=== PATIENT | female | born 1930 | race Caucasian/White ===

== ENCOUNTER 2016-11-10 02:50 | Inpatient (IN) | payer BC, OTHER ==
[~2016-11-10] VITALS: Ht 157.5 cm; Wt 36.1 kg
[2016-11-10] VITALS (51 sets, daily range): BP systolic 66–118; BP diastolic 46–78; PULSE 79–151; TEMP 36.4–36.6; O2SAT 88–100; Ht 157.5 cm; Wt 36.1 kg
[~2016-11-10 02:50] MED LIST: OXYC-57 PO
[2016-11-10] MEDS ORDERED: SODIUM CHLORIDE 0.9% 1000ML 1,000 ML IV STA (03:06)
[2016-11-10] MEDS ORDERED: PANTOprazole INJ 80 MG in DEXTROSE 5% 100ML IV STA (03:14)
[2016-11-10] MEDS ORDERED: PANTOprazole INJ 40 MG in DEXTROSE 5% 100ML IV STA (03:15)
[2016-11-10 03:38] LABS: ISTAT CREATININE 0.7 mg/dl (0.6-1.3); ISTAT HEMOGLOBIN 12.6 g/dl (12.0-16.0); ISTAT IONIZED CALCIUM 1.53 mmol/l (1.12-1.32)
[2016-11-10 03:43] LABS: URINE APPEARANCE CLEAR (CLEAR); URINE COLOR DK YELLOW; URINE EPITHELIAL CELL AUTO >30 /lpf (0-5); URINE NITRITE NEG (NEG); URINE SPECIFIC GRAVITY 1.022 (1.000-1.030); UROBILINOGEN NEG (NEG); ZZURINE CULT IF INDIC CATH NO
[2016-11-10 03:47] LABS: INR 1.2 (0.9-1.1); PROTHROMBIN TIME (PATIENT) 13.4 SECONDS (9.0-12.0)
[2016-11-10 03:54] LABS: BUN/CREATININE RATIO 59.4 (10-20); CALCIUM 10.8 mg/dl (8.5-10.1); CREATININE 0.8 mg/dl (0.60-1.20); MAGNESIUM 2.6 mg/dl (1.8-2.4); POTASSIUM 3.9 mmol/L (3.5-5.1)
[2016-11-10 03:58] LABS: MANUAL MICROSCOPIC REQUIRED? NO; REVIEW REQ? YES; URINE BILIRUBIN NEG (NEG)
[2016-11-10 03:59] LABS: CKMB/CK RATIO 2.9 (0-3.0)
[2016-11-10 04:10] LABS: BASO ABS # 0.01 K/uL (0-0.2); COMPLETE YES; HEMATOCRIT 40.2 % (37-47); IG% 0.5 %; LYMPH % 3.5 %; LYMPH ABS # 1.08 K/uL (1.2-3.4); MEAN CORPUSCULAR HEMOGLOBIN 33.3 pg (25-34); MEAN CORPUSCULAR HGB CONC 33.6 g/dl (32-36); MEAN PLATELET VOLUME 11.5 fL (7.4-10.4); MONO % 2.4 %; NEUT % 93.6 %; PLATELET COUNT 191 K/uL (130-400); RED BLOOD COUNT 4.06 M/uL (4.2-5.4)
[2016-11-10] MEDS ORDERED: MoRPHine SULFATE 2 MG/ML CARP ONE (04:28)
[2016-11-10] MEDS ORDERED: PIPERACILLIN/TAZOBACTAM 3.375 GM/100ML D5W IV STA (04:30)
[2016-11-10] MEDS ORDERED: ALBUT/IPRATROP 3MG/0.5MG NEB 3 ML VIAL INH PRN (04:45)
[2016-11-10] MEDS ORDERED: LORAZEPAM 2 MG/ML 1 ML VIAL IV PRN (04:45)
--- NOTE | 2016-11-10 05:20 | History and Physical ---
History & Physical Date & Time of Service: Nov 10, 2016 at 04:43 Chief Complaint: Illness/Dehydrated Primary Care Physician: Michael Farah M.D. History of Present Illness Source: patient, spouse 85 y/o F w/Hx bronchiectasis and oral CA receiving radiation therapy. Pt has very poor PO intake and functional status at baseline. She developed bloody diarrhea earlier 11/10 and suffered a brief unresponsive episode following a BM. EMS were called to her house however she refused transport to the hospital. She became progressively lethargic and and continued to have bouts of bloody diarrhea. EMS was once again summoned by her resulting in transport to the hospital. Following fluid resuscitation in the ER she regained her orientation. She has chronic oral pain but denies abdominal pain, nausea or vomiting preceding her hematochezia. She has a chronic cough owing to her bronchiectasis but denies SOB above baseline or fevers. She is borderline hypotensive and tachycardic at the time of admission. Initial labs are notable for leukocytosis, hypernatremia, uremia and an elevated lactic acid. EKG shows either sinus tach or flutter at a rate of 150. 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 Noncontributory Social History Smoking Status: Never Smoker Alcohol Use: none Drug Use: none Marital Status: Housing status: lives with friends Immunizations History of Influenza Vaccine: Unknown History of Tetanus Vaccine?: Unknown History of Pneumococcal: Unknown History of Hepatitis B Vaccine: Unknown Multi-Drug Resistant Organisms History of MDRO: No Allergies Coded Allergies: Tetanus Toxoid (Verified Allergy, Severe, SWELLING, RED, INFLAMMED, 11/10/16 ) Codeine (Verified Allergy, Intermediate, VOMITING, 11/10/16) NSAIDs (Verified Allergy, Intermediate, FACIAL SWELLING, STOMACH PROBLEMS , 11/10/16) Home Medications Scheduled PRN Oxycodone/Acetaminophen 5MG/325MG (Percocet 5MG/325MG), 1 TABLET PO Q6H PRN for Pain Review of Systems Constitutional: + fatigue, + weakness, + weight loss, No chills, No fever, No sweats Eyes: No worsening of vision ENT: + problem reported (Chronic oral pain), + trouble swallowing, No hearing loss, No unusual epistaxis Respiratory: + cough, + sputum Cardiovascular: No PND, No chest pain, No orthopnea Abdomen: + diarrhea, + problem reported (Hmeatochezia), No nausea, No pain, No vomiting Musculoskeletal: + joint pain (Chronic) Genitourinary - Female: No dysuria, No urinary frequency, No urinary urgency Neurologic: + weakness, No memory loss, No paralysis Psychiatric: No depression symptoms Endocrine: + fatigue Hematologic / Lymphatic: + abnormal bleeding/bruising Integumentary: No rash Allergic / Immunologic: No environmental allergies Physical Exam Vital Signs Date Time Temp Pulse Resp B/P Pulse Ox O2 Delivery O2 Flow Rate FiO2 11/10/16 04:15 152 94/82 11/10/16 04:03 153 102/73 96 Nasal Cannula 4.0 11/10/16 03:41 Nasal Cannula 4.0 11/10/16 03:38 153 135/91 11/10/16 03:36 170 11/10/16 03:35 154 11/10/16 03:29 104 11/10/16 03:25 159 30 11/10/16 03:20 151 31 11/10/16 03:17 36.1 152 31 98/63 90 Nasal Cannula 11/10/16 03:17 159 11/10/16 03:15 105 28 11/10/16 03:10 118 32 11/10/16 03:10 123 11/10/16 03:00 98/63 General Appearance: + pertinent finding (Sverely wasted elderly female, pale and slow to answer questions - globally weak - oriented x 3 ) Head: normocephalic, atraumatic ENT: + pertinent finding (Inflamed palate - could not open mouth widely) Neck: supple, no JVD Respiratory/Chest: chest non-tender, lungs clear, no respiratory distress, no accessory muscle use Cardiovascular: + tachycardia (e=Regular tachycardia - may have slight systolic murmur) Abdomen/GI: non tender, + pertinent finding (Firm abdomen - nontender to palpation - aortic pulse is palpable BS+ - hematochezia witnessed) Back: normal inspection Extremities/Musculoskelatal: + pertinent finding (Severe muscle wasting) Neurologic/Psych: tobacco packer II-XII nml as tested, alert, + pertinent finding ( Globally weak without focal defecits) Skin: warm/dry (Severe pallor) Diagnostics Laboratory Results Results Past 24 Hours Test 11/10/16 02:59 11/10/16 03:17 11/10/16 03:21 11/10/16 03:30 Range/Units Bedside Lactic Acid Venous 5.94 0.90-1.70 mmol/L White Blood Count 30.70 4.8-10.8 K/uL Red Blood Count 4.06 4.2-5.4 M/uL Hemoglobin 13.5 12.0-16.0 g/dL Hematocrit 40.2 37-47 % Mean Corpuscular Volume 99.0 80-100 fL Mean Corpuscular Hemoglobin 33.3 25-34 pg Mean Corpuscular Hemoglobin Concent 33.6 32-36 g/dl Platelet Count 191 130-400 K/uL Mean Platelet Volume 11.5 7.4-10.4 fL Neutrophils (%) (Auto) 93.6 % Lymphocytes (%) (Auto) 3.5 % Monocytes (%) (Auto) 2.4 % Eosinophils (%) (Auto) 0.0 % Basophils (%) (Auto) 0.0 % Neutrophils # (Auto) 28.72 1.4-6.5 K/uL Lymphocytes # (Auto) 1.08 1.2-3.4 K/uL Monocytes # (Auto) 0.73 0.11-0.59 K/uL Eosinophils # (Auto) 0.00 0-0.5 K/uL Basophils # (Auto) 0.01 0-0.2 K/uL RDW Standard Deviation 51.5 36.4-46.3 fL RDW Coefficient of Variation 14.4 11.5-14.5 % Immature Granulocyte % (Auto) 0.5 % Immature Granulocyte # (Auto) 0.16 0.00-0.02 K/uL Prothrombin Time 13.4 9.0-12.0 SECONDS Prothromb Time International Ratio 1.2 0.9-1.1 Sodium Level 153 136-145 mmol/L Potassium Level 3.9 3.5-5.1 mmol/L Chloride Level 115 98-107 mmol/L Carbon Dioxide Level 25 21-32 mmol/L Anion Gap 13.0 23.0 16-25 mmol/L Blood Urea Nitrogen 48 7-18 mg/dl Creatinine 0.80 0.60-1.20 mg/dl Est Creatinine Clear Calc Drug Dose 27.7 ml/min Estimated GFR () 77.4 Estimated GFR (Non- 66.8 BUN/Creatinine Ratio 59.4 10-20 Random Glucose 124 70-99 mg/dl Calcium Level 10.8 8.5-10.1 mg/dl Magnesium Level 2.6 1.8-2.4 mg/dl Total Bilirubin 0.8 0.2-1 mg/dl Direct Bilirubin 0.4 0-0.2 mg/dl Aspartate Amino Transf (AST/SGOT) 15 15-37 U/L Alanine Aminotransferase (ALT/SGPT) 15 12-78 U/L Alkaline Phosphatase 117 45-117 U/L Total Creatine Kinase 48 26-192 U/L Creatine Kinase MB 1.4 0.5-3.6 ng/ml Creatine Kinase MB Ratio 2.9 0-3.0 Troponin I 0.041 0-0.045 ng/ml Total Protein 7.2 6.4-8.2 gm/dl Albumin 2.2 3.4-5.0 gm/dl Bedside Hemoglobin 12.6 12.0-16.0 g/dl Bedside Hematocrit 37 37-47 % Bedside Sodium 151 135-144 mEq/L Bedside Potassium 3.7 3.3-5.0 mEq/L Bedside Chloride 111 101-112 mEq/L Bedside Total CO2 22 24-31 mEq/l Bedside Blood Urea Nitrogen 46 7-18 mg/dl Bedside Creatinine 0.7 0.6-1.3 mg/dl Bedside Glucose (other) 127 70-99 mg/dl Bedside Ionized Calcium (Wili) 1.53 1.12-1.32 mmol/l Urine Color DK YELLOW Urine Appearance CLEAR CLEAR Urine pH 5.0 4.5-7.5 Urine Specific [place] 1.022 1.000-1.030 Urine Protein NEG NEG Urine Glucose (UA) NEG NEG Urine Ketones NEG NEG Urine Occult Blood NEG NEG Urine Nitrite NEG NEG Urine Bilirubin NEG NEG Urine Urobilinogen NEG NEG Urine Leukocyte Esterase NEG NEG Urine WBC (Auto) 1-5 0-5 /hpf Urine RBC (Auto) 0-4 0-4 /hpf Urine Hyaline Casts (Auto) 10-30 0-5 /lpf Urine Epithelial Cells (Auto) >30 0-5 /lpf Urine Bacteria (Auto) NEG NEG Urine Renal Epithelial Cells 0-5 /lpf Microbiology Results 11/10/16 Blood Culture, Received Pending 11/10/16 Blood Culture, Received Pending Diagnostic Radiology CXR appears consistent with COPD - multiple nodular densities may represent underlying bronchiectasis EKG Difficult to discern if EKG represents flutter or sinus tach Impression Assessment and Plan 85 y/o F w/Hx bronchiectasis and oral CA receiving radiation therapy. Pt has very poor PO intake and functional status at baseline. She developed bloody diarrhea earlier 11/10 and suffered a brief unresponsive episode following a BM. EMS were called to her house however she refused transport to the hospital. She became progressively lethargic and and continued to have bouts of bloody diarrhea. EMS was once again summoned by her resulting in transport to the hospital. Following fluid resuscitation in the ER she regained her orientation. She is borderline hypotensive and tachycardic at the time of admission. Initial labs are notable for leukocytosis, hypernatremia, uremia and an elevated lactic acid. EKG shows either sinus tach or flutter at a rate of 150. 1) GI bleed - possibly upper - pt is borderline hypotensive and tachycardic - will be admitted to the ICU and transfused - Protonix GTT ordered. GI consulted. Aggressive fluid resuscitation provided pending transfusions. Hb will be checked Q4H. 2) Tachycardia - sinus vs flutter - She may be compensating and has become gradually hypotensive so that we will avoid rate control drugs at present. We will order an echo and digoxin would be an option if this is deemed to be flutter as opposed to sinus tach. 3) Leukocytosis with history of bronchiectasis - we will start Zosyn considering her condition and lactic acidosis although acute infection cannot be confirmed presently. Nebulizers and an 02 protocol provided 4) Hypernatremia - likely severe dehydration - IVF provided. 5) Severe protein malnutrition - may need TPN while in hospital - should be addressed as possible if pt recovers 6) Oral CA - Pain control with IV morphine PRN Pt may not be a candidate for any intervention owing to her constitutional status and I have explained this to her and her at bedside. As her condition is critical we will request a palliative care consult. She remains a full code although I have explained that CPR can result in morbidity and intubation may be difficult and detrimental with underlying oral CA. Full code - SCDs for prophylaxis Tital time for this admit including discussion with ER attending, extensive discussion with pt and , review of imaging , labs , meds - including critical care time 45 min Level of Care Critical Care Resuscitation Status FULL RESUSCITATION VTE Prophylaxis VTE Risk Assessment Done? Y/N: Yes Risk Level: High Given or contraindicated: SCD's Note Total Time: Critical Care 30 - 74 minutes
[2016-11-10] MEDS ORDERED: SODIUM CHLORIDE 0.9% 500ML 500 ML IV PRN (05:30)
[2016-11-10] MEDS ORDERED: NSS + 20MEQ KCL 1000ML 1,000 ML IV SCH (06:00)
[2016-11-10] MEDS ORDERED: PIPERACILL/TAZOBAC CONSULT ACTIVE PRN (06:15)
--- NOTE | 2016-11-10 06:38 | EMERGENCY ROOM VISIT NOTE ---
History Report prepared by Bubba: Durga Tsai Under the Supervision of: Dr. Roland Jeffries M.D. First contact with patient: 03:01 Chief Complaint: ILLNESS Stated Complaint: ILLNESS/DEHYDRATED History of Present Illness The patient is an 85 year old female who presents to the Emergency Room with complaints of persistent bloody diarrhea today. The patient denies abdominal pain. As per nursing staff, the paramedics were called twice before the patient agreed to come to the ED. She receives chemotherapy for oral cancer. History limited secondary to patient not talking. As per EMS, the patient has known oral cancer. It is unknown what antibiotics she is on. She had a bloody bowel movement earlier today. EMS was called, and she refused to come to the hospital upon their arrival. This evening she had an unresponsive episode. Her called 911. When EMS arrived, she was awake and somewhat responsive. She is a full code. Source of History: patient, EMS, nursing staff History Limited By: other (non verbal) Onset: all day Position: other (GI) Quality: other (bloody diarrhea) Timing: other (persistent) Associated Symptoms: No abdominal pain Review of Systems ROS limited secondary to patient not talking. Past Medical & Surgical Medical Problems: (1) GI hemorrhage (2) Head and neck cancer Family History Patient reports no known family medical history. Social History Smoking Status: Never Smoker Marital Status: Housing Status: lives with family Current/Historical Medications Scheduled PRN Oxycodone/Acetaminophen 5MG/325MG (Percocet 5MG/325MG), 1 TABLET PO Q6H PRN for Pain Allergies Coded Allergies: Tetanus Toxoid (Verified Allergy, Severe, SWELLING, RED, INFLAMMED, 11/10/16 ) Codeine (Verified Allergy, Intermediate, VOMITING, 11/10/16) NSAIDs (Verified Allergy, Intermediate, FACIAL SWELLING, STOMACH PROBLEMS , 11/10/16) Physical Exam Vital Signs Date Time Temp Pulse Resp B/P Pulse Ox O2 Delivery O2 Flow Rate FiO2 11/10/16 04:31 145 104/71 11/10/16 04:15 152 94/82 11/10/16 04:03 153 102/73 96 Nasal Cannula 4.0 11/10/16 03:41 Nasal Cannula 4.0 11/10/16 03:38 153 135/91 11/10/16 03:36 170 11/10/16 03:35 154 11/10/16 03:29 104 11/10/16 03:25 159 30 11/10/16 03:20 151 31 11/10/16 03:17 36.1 152 31 98/63 90 Nasal Cannula 11/10/16 03:17 159 11/10/16 03:15 105 28 11/10/16 03:10 118 32 11/10/16 03:10 123 11/10/16 03:00 98/63 Physical Exam GENERAL: Patient is very unwell appearing and appears to be in severe distress. Emaciated/cachectic. Severely malnourished. HEENT: No acute trauma, normocephalic atraumatic, mucous membranes dry, lips are cracked with blood on teeth, no nasal congestion, no scleral icterus. NECK: No stridor, no adenopathy, no meningismus, trachea is midline. LUNGS: No dyspnea. Clear to auscultation and equal bilaterally. No wheeze, no rhonchi. Mildly tachypneic. HEART: Tachycardic, regular rhythm. No murmurs, rubs, gallops appreciated. ABDOMEN: Emaciated/cachectic with easily palpable liver, kidneys, aorta, bowel. Soft, nontender. No peritonitis. BACK: No midline tenderness, no CVA tenderness EXTREMITIES: Weak motion all extremities, no cyanosis, no edema. NEUROLOGIC: Sleepy, answers simple questions with yes or no, difficult to obtain full neuro given altered mental status on arrival. SKIN: No rash, no jaundice, no diaphoresis. Poor turgor. RECTAL: Black / bloody stool. Medical Decision & Procedures ER Provider Diagnostic Interpretation: X ray results are stated below per my interpretation. CHEST ONE VIEW: Right pleural effusion. Diffuse lung disease vs infiltrate vs cancer vs CHF. When compared to previous CXR from several years ago, lungs have significantly deteriorated. Laboratory Results 11/10/16 03:17 Red Blood Count 4.06, Mean Corpuscular Volume 99.0, Mean Corpuscular Hemoglobin 33.3, Mean Corpuscular Hemoglobin Concent 33.6, Mean Platelet Volume 11.5, Neutrophils (%) (Auto) 93.6, Lymphocytes (%) (Auto) 3.5, Monocytes (%) (Auto) 2.4, Eosinophils (%) (Auto) 0.0, Basophils (%) (Auto) 0.0, Neutrophils # (Auto) 28.72, Lymphocytes # (Auto) 1.08, Monocytes # (Auto) 0.73, Eosinophils # (Auto) 0.00, Basophils # (Auto) 0.01 11/10/16 03:17 Test 11/10/16 02:59 11/10/16 03:17 11/10/16 03:21 11/10/16 03:30 Bedside Lactic Acid Venous 5.94 mmol/L (0.90-1.70) White Blood Count 30.70 K/uL (4.8-10.8) Red Blood Count 4.06 M/uL (4.2-5.4) Hemoglobin 13.5 g/dL (12.0-16.0) Hematocrit 40.2 % (37-47) Mean Corpuscular Volume 99.0 fL (80-100) Mean Corpuscular Hemoglobin 33.3 pg (25-34) Mean Corpuscular Hemoglobin Concent 33.6 g/dl (32-36) Platelet Count 191 K/uL (130-400) Mean Platelet Volume 11.5 fL (7.4-10.4) Neutrophils (%) (Auto) 93.6 % Lymphocytes (%) (Auto) 3.5 % Monocytes (%) (Auto) 2.4 % Eosinophils (%) (Auto) 0.0 % Basophils (%) (Auto) 0.0 % Neutrophils # (Auto) 28.72 K/uL (1.4-6.5) Lymphocytes # (Auto) 1.08 K/uL (1.2-3.4) Monocytes # (Auto) 0.73 K/uL (0.11-0.59) Eosinophils # (Auto) 0.00 K/uL (0-0.5) Basophils # (Auto) 0.01 K/uL (0-0.2) RDW Standard Deviation 51.5 fL (36.4-46.3) RDW Coefficient of Variation 14.4 % (11.5-14.5) Immature Granulocyte % (Auto) 0.5 % Immature Granulocyte # (Auto) 0.16 K/uL (0.00-0.02) Prothrombin Time 13.4 SECONDS (9.0-12.0) Prothromb Time International Ratio 1.2 (0.9-1.1) Est Creatinine Clear Calc Drug Dose 27.7 ml/min Estimated GFR () 77.4 Estimated GFR (Non- 66.8 BUN/Creatinine Ratio 59.4 (10-20) Calcium Level 10.8 mg/dl (8.5-10.1) Magnesium Level 2.6 mg/dl (1.8-2.4) Total Bilirubin 0.8 mg/dl (0.2-1) Direct Bilirubin 0.4 mg/dl (0-0.2) Aspartate Amino Transf (AST/SGOT) 15 U/L (15-37) Alanine Aminotransferase (ALT/SGPT) 15 U/L (12-78) Alkaline Phosphatase 117 U/L (45-117) Total Creatine Kinase 48 U/L (26-192) Creatine Kinase MB 1.4 ng/ml (0.5-3.6) Creatine Kinase MB Ratio 2.9 (0-3.0) Troponin I 0.041 ng/ml (0-0.045) Total Protein 7.2 gm/dl (6.4-8.2) Albumin 2.2 gm/dl (3.4-5.0) Bedside Hemoglobin 12.6 g/dl (12.0-16.0) Bedside Hematocrit 37 % (37-47) Bedside Sodium 151 mEq/L (135-144) Bedside Potassium 3.7 mEq/L (3.3-5.0) Bedside Chloride 111 mEq/L (101-112) Bedside Total CO2 22 mEq/l (24-31) Anion Gap 23.0 mmol/L (16-25) Bedside Blood Urea Nitrogen 46 mg/dl (7-18) Bedside Creatinine 0.7 mg/dl (0.6-1.3) Bedside Glucose (other) 127 mg/dl (70-99) Bedside Ionized Calcium (Wili) 1.53 mmol/l (1.12-1.32) Urine Color DK YELLOW Urine Appearance CLEAR (CLEAR) Urine pH 5.0 (4.5-7.5) Urine Specific [place] 1.022 (1.000-1.030) Urine Protein NEG (NEG) Urine Glucose (UA) NEG (NEG) Urine Ketones NEG (NEG) Urine Occult Blood NEG (NEG) Urine Nitrite NEG (NEG) Urine Bilirubin NEG (NEG) Urine Urobilinogen NEG (NEG) Urine Leukocyte Esterase NEG (NEG) Urine WBC (Auto) 1-5 /hpf (0-5) Urine RBC (Auto) 0-4 /hpf (0-4) Urine Hyaline Casts (Auto) 10-30 /lpf (0-5) Urine Epithelial Cells (Auto) >30 /lpf (0-5) Urine Bacteria (Auto) NEG (NEG) Urine Renal Epithelial Cells /lpf (0-5) Laboratory results as reviewed by me. Medications Administered Medications (Trade) Dose Ordered Sig/Alfonzo Route Start Time Stop Time Status Last Admin Dose Admin Sodium Chloride (Nss 1000ml) 1,000 ml @ 999 mls/hr Q1H1M STAT IV 11/10/16 03:06 11/10/16 04:06 DC 11/10/16 03:35 999 MLS/HR Pantoprazole Sodium 1 ea 1 ea NOW STAT IV 11/10/16 03:06 11/10/16 03:08 DC 11/10/16 03:06 1 EA Pantoprazole Sodium 80 mg/ Dextrose 120 ml @ 480 mls/hr ONE STAT IV 11/10/16 03:14 11/10/16 03:28 DC 11/10/16 03:36 480 MLS/HR Pantoprazole Sodium/Dextrose (Protonix Inj/D5 100ml) 100 ml @ 20 mls/hr ONE STAT IV 11/10/16 03:15 11/10/16 05:56 DC 11/10/16 03:48 20 MLS/HR Morphine Sulfate (MoRPHine SULFATE INJ) 2 mg STK-MED ONCE .ROUTE 11/10/16 04:28 11/10/16 04:29 DC 11/10/16 04:28 2 MG Piperacillin Sod/ Tazobactam Sod (Zosyn Iv) 3.375 gm NOW STAT IV 11/10/16 04:30 11/10/16 04:31 DC 11/10/16 04:47 3.375 GM ECG Indication: weakness Rate (beats per minute): 112 Rhythm: sinus tachycardia Findings: PAC, no acute ischemic change ED Course 0300: The patient was evaluated in room A3. A complete history and physical exam was performed. 0306: Protonix IV Bolus/Drip 1 ea IV, NSS 1000 ml @ mls/hr. 0308: Obtained more information from EMS. 0314: Pantoprazole Sodium 80 mg / dextrose 120 ml @ 480 mls/hr. 0315: Pantoprazole Sodium 40 mg / dextrose 100 ml @ 20 mls/hr. 0325: The patient is now profusely bleeding from her rectum. 0320: Gastroenterology was paged. 0335: Checked on the patient. I updated her . I recommended that their sons be contacted. 0335: Discussed the case with Dr. Hernandez, [employer]. He agrees that the patient would be unsuitable for emergent endoscopy. Attempts at reversing with PRBCs and Protonix may be the only option. 0350: Dr. Conley, [facility] Hospitalist, was paged. 0401: Discussed the case with Dr. Conley. The patient will be evaluated. 0408: The patient is starting to wake up. 0410: The patient's heart rate is at 150. She appears to be in a flutter. A repeat EKG will be obtained. 0430: Zosyn 3.375 gm IV. Medical Decision Differential: Sepsis, Infectious (UTI/Pneumonia/Meningitis/etc), Metabolic/ Electrolyte Abnormality, Cardiac, Hepatic, Endocrine, Toxicologic, Neurologic, amongst other pathologies entertained. 85 yr old severely unwell and malnourished female with known oral tumor that has had several rounds of palliative radiation. Previously ruled out Chemo or surgery due to she is too unwell for this. Arrives with tachycardia, hypotension, and heavy rectal bleeding. Large stool ball in rectal vault that blood in coursing around. No abdominal pain, nor TTP. Clearly palpable aorta but I feel this is more likely her severe emaciation than AAA. Immediately obtained 2 IVs, fluid resus begun and 2 Units PRBC ordered for transfusion. She initially was quite altered though with resus she started becoming more with it and answering questions. Initially tachy 110s then jumped to steady 150. Repeat EKG looks almost like Aflutter and she remained very stable 150 throughout. She is not candidate for cardizem/lopressor and would be quite hesitant on trial of adenosine, nor starting dig without echo. She is maintaining her BP. WBC is quite elevated which I suspect is mostly stress related but with lactic acidosis and other issues will start Zosyn, especially that bleed may be related to diverticulitis. I discussed at length multiple time with and and both feel they would like full ACLS in case of cardio/respiratory failure. I did discuss case with Dr Howard GI and we both agree she would be far to unstable to go to OR/Endo and that protonix/PRBC is only option at this time. Dr Conley in to evaluate patient as well and we discussed case at length. Both of us feel she is not in any way a surgical candidate at the moment as she needs further resus. He will take her to ICU for further management/treatment. Consults Time Called: [phone] Consulting Physician: Dr. Hernandez, [employer] Returned Call: [phone]: Discussed the case with Dr. Hernandez, [employer]. He agrees that the patient would be unsuitable for emergent endoscopy. Attempts at reversing with PRBCs and Protonix may be the only option. Additional Consults: Time Called: [phone] Consulted Physician: Dr. Conley, [facility] Hospitalist Returned Call: [phone] Additional Comments: 400: Discussed the case with Dr. Conley. The patient will be evaluated. Impression Primary Impression: Acute GI bleeding Additional Impressions: Lactic acidosis, Leukocytosis Critical Care I have personally spent greater than 75 minutes of critical care time in the direct management of this patient. This was a life/limb threatening event. This includes time spent evaluating patient, direct bedside care, chart review, placing orders, interpretation of diagnostic studies, discussion with consultants, patient, and family members, as well as other required patient management activities. This 75 minutes is in excess of all separately billable procedures. Scribe Attestation The scribe's documentation has been prepared under my direction and personally reviewed by me in its entirety. I confirm that the note above accurately reflects all work, treatment, procedures, and medical decision making performed by me. Departure Information Dispostion Being Evaluated By Hospitalist Michael Clark M.D. (PCP) Patient Instructions A Signature Page, My [facility]
[2016-11-10] MEDS: SODIUM CHLOR 0.45% + 20MEQ KCL 1,000 ML IV SCH ×3 (07:15→21:44)
--- NOTE | 2016-11-10 07:22 | DIAGNOSTIC IMAGING REPORT ---
CHEST ONE VIEW PORTABLE HISTORY: fever COMPARISON: PET CT 08/10/2016. FINDINGS: No pneumothorax. Partially loculated [id number] right pleural effusion is new from the prior study. The heart is normal in size. The lungs are hyperexpanded. Right greater than left patchy airspace opacities have also progressed. IMPRESSION: 1. Interval development of a small to moderate partially loculated right pleural effusion. 2. Right greater than left patchy and nodular airspace opacities has also progressed. This may represent an atypical infectious process and/or metastatic disease. Electronically signed by: Gibson Rodrigues M.D. 11/10/2016 7:20 AM
--- NOTE | 2016-11-10 09:22 | Palliative Care Consultation ---
Consultation Date of Consultation: Nov 10, 2016. Requesting Physician: Dr. Cabello, Crys Queen PA-C Attending Physician: Dr. Cabello Reason for Consultation: Goals of care History of Present Illness This 85 year old female patient with a history of oral cancer and completed radiation therapy on 11/02/16 presented with c/o bloody diarrhea and syncope following a bowel movement. EMS was contacted and she refused transportation the hospital. She became progressively lethargic with subsequent bouts of bloody diarrhea and was brought to the emergency room. She was fluid resuscitated with good response and more altertness. She was hypotensive and tachycardic on admission and was transferred to the intensive care unit evaluation and treatment. EKG showed tachycardia at 150 bpm concerning for atrial flutter. With fluid hydration she converted spontaneously into a normal sinus rhythm. This patient is severely cachectic, profoundly malnourished and weak, and has had an overall decline. While her VS are stable at this time, her frailty and comorbidities given her a poor prognosis. Palliative care consulted to assist with goals of care. I met with the patient and her in the room. The patient was awake and alert, oriented to person, place and somewhat event. She is slightly disoriented , but still was able to appropriately participate in conversation. She denied any pain or discomfort. I spoke with her and her extensively about goals of care. It is very important to the patient to be comfortable and not suffer. The agrees. the patient and her , Ivan, chose to change patient's code status to DNR/DNI. They'd like to continue with conservative and supportive measures for the next 24 hours and monitor for improvement vs. decline. If the patient declines, she'd like to be comfort measures only. Past Medical/Surgical History Medical History: Bronchiectasis Oral cancer s/p radiation completed 12/03/15 Cachexia Osteoarthritis Social History Smoking Status: Never Smoker History of Alcohol Use: No Drug Use: none Marital Status: Housing Status: lives with friends Review of Systems Constitutional: + weakness Respiratory: No dyspnea on exertion, No shortness of breath Cardiac: No chest pain, No edema Abdomen: + diarrhea, No nausea, No pain, No vomiting Female : No problem reported Allergies Coded Allergies: Tetanus Toxoid (Verified Allergy, Severe, SWELLING, RED, INFLAMMED, 11/10/16 ) Codeine (Verified Allergy, Intermediate, VOMITING, 11/10/16) NSAIDs (Verified Allergy, Intermediate, FACIAL SWELLING, STOMACH PROBLEMS , 11/10/16) Medications Current Inpatient Medications Medications (Trade) Dose Ordered Sig/Alfonzo Route Start Time Stop Time Status Last Admin Dose Admin Piperacillin Sod/ Tazobactam Sod/ Dextrose (Zosyn Iv/D5 100ml) 115 ml @ 28.75 mls/ hr Q8H IV 11/10/16 10:00 11/17/16 09:59 Lorazepam (Ativan Inj) 0.5 mg Q4H PRN IV 11/10/16 04:45 12/10/16 04:44 Albuterol/ Ipratropium (Duoneb) 3 ml Q6H PRN INH 11/10/16 04:45 12/10/16 04:44 Morphine Sulfate 4 mg 4 mg Q2H PRN IV 11/10/16 04:45 11/24/16 04:44 Sodium Chloride (Nss 500ml) 500 ml @ 500 mls/hr Q1H PRN IV 11/10/16 05:30 12/10/16 05:29 Piperacillin Sod/ Tazobactam Sod 1 ea 1 ea UD PRN N/A 11/10/16 06:15 12/10/16 06:14 Potassium Chloride/Sodium Chloride (/ Nss + 20meq KCl 1000ml) 1,000 ml @ 150 mls/hr Q6H40M IV 11/10/16 07:15 12/10/16 06:44 Physical Exam Date Time Temp Pulse Resp B/P Pulse Ox O2 Delivery O2 Flow Rate FiO2 11/10/16 06:29 79 14 89/54 94 11/10/16 06:13 89 27 97/52 98 11/10/16 06:10 89 25 87/53 97 4.0 11/10/16 05:58 88 23 87/53 93 11/10/16 05:47 36.5 95 24 95/60 11/10/16 05:46 36.4 93 25 82/51 95 4.0 11/10/16 05:43 89 26 82/51 94 11/10/16 05:33 90 17 90/56 11/10/16 05:26 36.5 89 24 95/60 97 11/10/16 05:10 97 Nasal Cannula 4.0 11/10/16 04:45 90/68 11/10/16 04:31 145 104/71 11/10/16 04:15 152 94/82 11/10/16 04:03 153 102/73 96 Nasal Cannula 4.0 11/10/16 03:41 Nasal Cannula 4.0 11/10/16 03:38 153 135/91 11/10/16 03:36 170 11/10/16 03:35 154 11/10/16 03:29 104 11/10/16 03:25 159 30 11/10/16 03:20 151 31 11/10/16 03:17 36.1 152 31 98/63 90 Nasal Cannula 11/10/16 03:17 159 11/10/16 03:15 105 28 11/10/16 03:10 118 32 11/10/16 03:10 123 11/10/16 03:00 98/63 General Appearance: no apparent distress, + cachetic, + thin, + pertinent finding (chronically ill appearing) Neck: no JVD, trachea midline Respiratory: no respiratory distress, no accessory muscle use, + rhonchi ( coarse anteriorly) Cardiovascular: regular rate, rhythm, no edema Abdomen: normal bowel sounds, non tender, soft Musculoskeletal: pertinent finding (right arm with +1 edema) Neurologic/Psychiatric: alert, normal mood/affect, oriented x 3, + disoriented (some forgetfulness) Skin: + pallor Laboratory Results Last 24 Hours Test 11/10/16 02:59 11/10/16 03:17 11/10/16 03:21 11/10/16 03:30 Bedside Lactic Acid Venous 5.94 mmol/L White Blood Count 30.70 K/uL Red Blood Count 4.06 M/uL Hemoglobin 13.5 g/dL Hematocrit 40.2 % Mean Corpuscular Volume 99.0 fL Mean Corpuscular Hemoglobin 33.3 pg Mean Corpuscular Hemoglobin Concent 33.6 g/dl Platelet Count 191 K/uL Mean Platelet Volume 11.5 fL Neutrophils (%) (Auto) 93.6 % Lymphocytes (%) (Auto) 3.5 % Monocytes (%) (Auto) 2.4 % Eosinophils (%) (Auto) 0.0 % Basophils (%) (Auto) 0.0 % Neutrophils # (Auto) 28.72 K/uL Lymphocytes # (Auto) 1.08 K/uL Monocytes # (Auto) 0.73 K/uL Eosinophils # (Auto) 0.00 K/uL Basophils # (Auto) 0.01 K/uL RDW Standard Deviation 51.5 fL RDW Coefficient of Variation 14.4 % Immature Granulocyte % (Auto) 0.5 % Immature Granulocyte # (Auto) 0.16 K/uL Prothrombin Time 13.4 SECONDS Prothromb Time International Ratio 1.2 Sodium Level 153 mmol/L Potassium Level 3.9 mmol/L Chloride Level 115 mmol/L Carbon Dioxide Level 25 mmol/L Anion Gap 13.0 mmol/L 23.0 mmol/L Blood Urea Nitrogen 48 mg/dl Creatinine 0.80 mg/dl Est Creatinine Clear Calc Drug Dose 27.7 ml/min Estimated GFR () 77.4 Estimated GFR (Non- 66.8 BUN/Creatinine Ratio 59.4 Random Glucose 124 mg/dl Calcium Level 10.8 mg/dl Magnesium Level 2.6 mg/dl Total Bilirubin 0.8 mg/dl Direct Bilirubin 0.4 mg/dl Aspartate Amino Transf (AST/SGOT) 15 U/L Alanine Aminotransferase (ALT/SGPT) 15 U/L Alkaline Phosphatase 117 U/L Total Creatine Kinase 48 U/L Creatine Kinase MB 1.4 ng/ml Creatine Kinase MB Ratio 2.9 Troponin I 0.041 ng/ml Total Protein 7.2 gm/dl Albumin 2.2 gm/dl Bedside Hemoglobin 12.6 g/dl Bedside Hematocrit 37 % Bedside Sodium 151 mEq/L Bedside Potassium 3.7 mEq/L Bedside Chloride 111 mEq/L Bedside Total CO2 22 mEq/l Bedside Blood Urea Nitrogen 46 mg/dl Bedside Creatinine 0.7 mg/dl Bedside Glucose (other) 127 mg/dl Bedside Ionized Calcium (Wili) 1.53 mmol/l Urine Color DK YELLOW Urine Appearance CLEAR Urine pH 5.0 Urine Specific [place] 1.022 Urine Protein NEG Urine Glucose (UA) NEG Urine Ketones NEG Urine Occult Blood NEG Urine Nitrite NEG Urine Bilirubin NEG Urine Urobilinogen NEG Urine Leukocyte Esterase NEG Urine WBC (Auto) 1-5 /hpf Urine RBC (Auto) 0-4 /hpf Urine Hyaline Casts (Auto) 10-30 /lpf Urine Epithelial Cells (Auto) >30 /lpf Urine Bacteria (Auto) NEG Urine Renal Epithelial Cells /lpf Test 11/10/16 08:00 Assessment & Plan Palliative Performance Scale: 20 % Problem list: GI bleed Oral cancer s/p radiation completed on 11/02/16 Cachexia Pleural effusion Malnutrition/Poor PO intake Bronchiectasis Weakness Goals of care Palliative care plan: DNR/DNI per patient and her who is at bedside. Continue with supportive care such as protonix drip, IVF and anything comfort-related. The patient's goal is to be comfortable for the remainder of her life and to not have invasive procedures or aggressive treatment. I did advise the , Ivan, to call any and all family/friends who wish to see the patient, as we unfortunately are approaching end-of-life care. The patient and Ivan verbalized understanding. The plan for now is to continue conservative and supportive measures for the next 24 hours, then reevaluate. If patient declines, she wishes to be comfort measures only. Their ultimate goal would be to get patient to [facility] for comfort care. Thank you kindly for this consult.
[2016-11-10 09:55] LABS: HEMATOCRIT 40.5 % (37-47)
--- NOTE | 2016-11-10 10:11 | Gastrointestinal Consultation ---
Gastrointestinal Consultation Date of Consultation: Nov 10, 2016 Attending Physician: Dr. Conley Consulting Physician: Dr. Hernandez/SHIELA Moreno Reason for Consultation: GIB History of Present Illness Patient is a 85 year old female with a history of oral cancer admitted to the hospital early this morning after a one day history of bloody diarrhea and increasing weakness. Patient has a poor oral nutritional status. She denies any abdominal pain, nausea or vomiting, or diarrhea since admission. H&H was normal on admission and she remains hemodynamically stable. Patient did have a significant leukocytosis of 30.7 and abnormal chest x ray suggestive an infectious or malignant process right > left. She has been placed on IV Zosyn in this regard. She was seen by palliative care and decision has been made for comfort measures. Past Medical/Surgical History Medical Problems: (1) Acute GI bleeding Status: Acute (2) Lactic acidosis Status: Acute (3) Leukocytosis Status: Acute Past Medical History: 1. Oral cancer 2. Cachexia 3. Bronchiectasis 4. OA 5. GERD 6. Lichen planus Past Surgical History: 1. Oral palate biopsy 2. Cholecystectomy 3. Tonsillectomy 4. Hemorrhoidectomy Family History Patient reports no known family medical history. Negative for GI malignancy Social History Smoking Status: Never Smoker Alcohol Use: none Drug Use: none Marital Status: Housing Status: lives with family Allergies Coded Allergies: Tetanus Toxoid (Verified Allergy, Severe, SWELLING, RED, INFLAMMED, 11/10/16 ) Codeine (Verified Allergy, Intermediate, VOMITING, 11/10/16) NSAIDs (Verified Allergy, Intermediate, FACIAL SWELLING, STOMACH PROBLEMS , 11/10/16) Current Medications Home Meds and Scripts Medications Dose Route/Sig Max Daily Dose Days Date Category Dose Instructions Percocet 5MG/325MG (Oxycodone/Acetaminophen) Tab 1 Tablet PO Q6H PRN 10/19/16 Reported PAIN Review of Systems Constitutional: + fatigue, + weakness Eyes: No problem reported ENT: No problem reported Respiratory: + dyspnea on exertion, + shortness of breath Cardiac: No chest pain Abdomen: + see HPI Musculoskeletal: No problem reported Psych: No problem reported Skin: No problem reported Physical Exam Date Time Temp Pulse Resp B/P Pulse Ox O2 Delivery O2 Flow Rate FiO2 11/10/16 06:29 79 14 89/54 94 11/10/16 06:13 89 27 97/52 98 11/10/16 06:10 89 25 87/53 97 4.0 11/10/16 05:58 88 23 87/53 93 11/10/16 05:47 36.5 95 24 95/60 11/10/16 05:46 36.4 93 25 82/51 95 4.0 11/10/16 05:43 89 26 82/51 94 11/10/16 05:33 90 17 90/56 11/10/16 05:26 36.5 89 24 95/60 97 11/10/16 05:10 97 Nasal Cannula 4.0 11/10/16 04:45 90/68 11/10/16 04:31 145 104/71 11/10/16 04:15 152 94/82 11/10/16 04:03 153 102/73 96 Nasal Cannula 4.0 11/10/16 03:41 Nasal Cannula 4.0 11/10/16 03:38 153 135/91 11/10/16 03:36 170 11/10/16 03:35 154 11/10/16 03:29 104 11/10/16 03:25 159 30 11/10/16 03:20 151 31 11/10/16 03:17 36.1 152 31 98/63 90 Nasal Cannula 11/10/16 03:17 159 11/10/16 03:15 105 28 11/10/16 03:10 118 32 11/10/16 03:10 123 11/10/16 03:00 98/63 General Appearance: + cachetic Eyes: EOMI Respiratory/Chest: lungs clear, + decreased breath sounds (bases) Cardiovascular: regular rate, rhythm, no gallop, no murmur Abdomen: normal bowel sounds, non tender, soft Neurologic/Psych: normal mood/affect, + pertinent finding (drowsy) Skin: warm/dry Laboratory Results Last 24 Hours Test 11/10/16 02:59 11/10/16 03:17 11/10/16 03:21 11/10/16 03:30 Bedside Lactic Acid Venous 5.94 mmol/L White Blood Count 30.70 K/uL Red Blood Count 4.06 M/uL Hemoglobin 13.5 g/dL Hematocrit 40.2 % Mean Corpuscular Volume 99.0 fL Mean Corpuscular Hemoglobin 33.3 pg Mean Corpuscular Hemoglobin Concent 33.6 g/dl Platelet Count 191 K/uL Mean Platelet Volume 11.5 fL Neutrophils (%) (Auto) 93.6 % Lymphocytes (%) (Auto) 3.5 % Monocytes (%) (Auto) 2.4 % Eosinophils (%) (Auto) 0.0 % Basophils (%) (Auto) 0.0 % Neutrophils # (Auto) 28.72 K/uL Lymphocytes # (Auto) 1.08 K/uL Monocytes # (Auto) 0.73 K/uL Eosinophils # (Auto) 0.00 K/uL Basophils # (Auto) 0.01 K/uL RDW Standard Deviation 51.5 fL RDW Coefficient of Variation 14.4 % Immature Granulocyte % (Auto) 0.5 % Immature Granulocyte # (Auto) 0.16 K/uL Prothrombin Time 13.4 SECONDS Prothromb Time International Ratio 1.2 Sodium Level 153 mmol/L Potassium Level 3.9 mmol/L Chloride Level 115 mmol/L Carbon Dioxide Level 25 mmol/L Anion Gap 13.0 mmol/L 23.0 mmol/L Blood Urea Nitrogen 48 mg/dl Creatinine 0.80 mg/dl Est Creatinine Clear Calc Drug Dose 27.7 ml/min Estimated GFR () 77.4 Estimated GFR (Non- 66.8 BUN/Creatinine Ratio 59.4 Random Glucose 124 mg/dl Calcium Level 10.8 mg/dl Magnesium Level 2.6 mg/dl Total Bilirubin 0.8 mg/dl Direct Bilirubin 0.4 mg/dl Aspartate Amino Transf (AST/SGOT) 15 U/L Alanine Aminotransferase (ALT/SGPT) 15 U/L Alkaline Phosphatase 117 U/L Total Creatine Kinase 48 U/L Creatine Kinase MB 1.4 ng/ml Creatine Kinase MB Ratio 2.9 Troponin I 0.041 ng/ml Total Protein 7.2 gm/dl Albumin 2.2 gm/dl Bedside Hemoglobin 12.6 g/dl Bedside Hematocrit 37 % Bedside Sodium 151 mEq/L Bedside Potassium 3.7 mEq/L Bedside Chloride 111 mEq/L Bedside Total CO2 22 mEq/l Bedside Blood Urea Nitrogen 46 mg/dl Bedside Creatinine 0.7 mg/dl Bedside Glucose (other) 127 mg/dl Bedside Ionized Calcium (Wili) 1.53 mmol/l Urine Color DK YELLOW Urine Appearance CLEAR Urine pH 5.0 Urine Specific [place] 1.022 Urine Protein NEG Urine Glucose (UA) NEG Urine Ketones NEG Urine Occult Blood NEG Urine Nitrite NEG Urine Bilirubin NEG Urine Urobilinogen NEG Urine Leukocyte Esterase NEG Urine WBC (Auto) 1-5 /hpf Urine RBC (Auto) 0-4 /hpf Urine Hyaline Casts (Auto) 10-30 /lpf Urine Epithelial Cells (Auto) >30 /lpf Urine Bacteria (Auto) NEG Urine Renal Epithelial Cells /lpf Test 11/10/16 09:45 Hemoglobin 13.3 g/dL Hematocrit 40.5 % Impression Patient is a 85 year old female with a history of oral cancer admitted with lethargy and weakness with bloody diarrhea prior to arrival. Plan 1. Decision has been made for palliative care and comfort measures. 2. Would therefore defer any and all additional GI work up at this time. Agree with Selma Fletcher, as above Patient placed on comfort measures
[2016-11-10] MEDS: PIPERACILL/TAZOBAC IV 3.375 GM in DEXTROSE 5% 100ML 100 ML IV SCH ×2 (10:54→21:56)
[2016-11-10] MEDS: MoRPHine SULFATE 4 MG/ML 1 ML CARP\\VIAL IV PRN ×2 (12:58→17:28)
[2016-11-10 15:12] LABS: HEMATOCRIT 40.1 % (37-47)
--- NOTE | 2016-11-10 15:55 | ECHOCARDIOGRAM REPORT ---
*NOTICE TO RECEIVING LIBERTARIAN AGENCY This information is strictly Confidential and protected under [place] law. [place] law prohibits you from making any further disclosure of this information unless further disclosure is expressly permitted by the written consent of the person to whom it pertains or is authorized by law. A general authorization for the release of medical or other information is not sufficient for this purpose. Hospital accepts no responsibility if the information is made available to any other person, INCLUDING THE PATIENT. Interpretation Summary * Name: ANGE PATEL Study Date: 11/10/2016 06:39 AM BP: 89/54 mmHg * Patient Location: [facility] HR: 79 * : 1930 (M/d/yyyy) Gender: Female Height: 60 in * Age: 85 yrs Ethnicity: [place] Weight: 76 lb * Ordering Physician: Kristofer Conley * Referring Physician: TERESA * Performed By: Erendira Ruggiero RDCS * * Reason For Study: FLUTTER * BSA: 1.2 m2 * History: FLUTTER * -- Conclusions -- * The left ventricle is grossly normal size. * Left ventricular systolic function is low normal. * Ejection Fraction = 50-55%. * Flattened septum is consistent with RV volume overload. * There is mild concentric left ventricular hypertrophy. * Hemodynamically significant valvular aortic stenosis cannot be excluded. * Aortic valve right coronary cusp movement severely restricted, other cusps not well visualized. Indeterminate degree of aortic stenosis suggested, clinical correlation necessary. * Grade I diastolic dysfunction, (abnormal relaxation pattern). * There is moderate tricuspid regurgitation. * Right ventricular systolic pressure is normal. * The right ventricle is mildly dilated. Procedure Details * A complete two-dimensional transthoracic echocardiogram was performed (2D, M-mode, Doppler and color flow Doppler). Left Ventricle * The left ventricle is grossly normal size. * There is mild concentric left ventricular hypertrophy. * Ejection Fraction = 50-55%. * Left ventricular systolic function is low normal. * Flattened septum is consistent with RV volume overload. Right Ventricle * The right ventricle is mildly dilated. Atria * The left atrium is mildly dilated. * The right atrium is mildly dilated. * The interatrial septum is intact with no evidence for an atrial septal defect. Mitral Valve * The mitral valve is normal in structure and function. * There is trace mitral regurgitation. Tricuspid Valve * The tricuspid valve is normal in structure and function. * There is moderate tricuspid regurgitation. * Right ventricular systolic pressure is normal. Aortic Valve * The aortic valve is not well visualized. * Aortic valve right coronary cusp movement severely restricted, other cusps not well visualized. Indeterminate degree of aortic stenosis suggested, clinical correlation necessary. * Hemodynamically significant valvular aortic stenosis cannot be excluded. * There is no significant aortic regurgitation. Pulmonic Valve * The pulmonary valve is inadequately visualized, but the Doppler data is adequate for interpretation. * There is no significant pulmonary regurgitation. Great Vessels * The aortic root is normal size. * No obvious dissection could be visualized. * The pulmonary artery is not well visualized, but is probably normal size. Pericardium/Pleural * There is no pericardial effusion. Great Vessels * The inferior vena cava is mildly dilated. Left Ventricular Diastolic Function * Grade I diastolic dysfunction, (abnormal relaxation pattern). MMode 2D Measurements and Calculations IVSd 0.75 cm IVSs 1.2 cm LVIDd 2.7 cm LVIDs 2.0 cm LVPWd 1.1 cm LVPWs 1.3 cm IVS/LVPW 0.71 FS 26.2 % EDV(Teich) 27.3 ml ESV(Teich) 12.7 ml EF(Teich) 53.3 % EDV(cubed) 19.9 ml ESV(cubed) 8.0 ml EF(cubed) 59.8 % % IVS thick 55.7 % % LVPW thick 23.4 % LV mass(C)d 61.1 grams LV mass(C)dI 49.4 grams/m\S\2 LV mass(C)s 68.8 grams LV mass(C)sI 55.6 grams/m\S\2 SV(Teich) 14.5 ml SI(Teich) 11.8 ml/m\S\2 SV(cubed) 11.9 ml SI(cubed) 9.6 ml/m\S\2 Ao root diam 2.3 cm Ao root area 4.3 cm\S\2 LA dimension 2.0 cm LA/Ao 0.84 LVAd ap4 9.6 cm\S\2 LVLd ap4 4.9 cm EDV(MOD-sp4) 15.8 ml EDV(sp4-el) 15.9 ml LVAs ap4 6.7 cm\S\2 LVLs ap4 4.6 cm ESV(MOD-sp4) 8.7 ml ESV(sp4-el) 8.3 ml EF(MOD-sp4) 45.0 % EF(sp4-el) 47.6 % LVAd ap2 11.0 cm\S\2 LVLd ap2 5.2 cm EDV(MOD-sp2) 19.0 ml EDV(sp2-el) 19.7 ml LVAs ap2 7.1 cm\S\2 LVLs ap2 4.5 cm ESV(MOD-sp2) 9.5 ml ESV(sp2-el) 9.4 ml EF(MOD-sp2) 50.0 % EF(sp2-el) 52.3 % LVLd %diff 6.7 % EDV(MOD-bp) 18.1 ml LVLs %diff -2.06 % ESV(MOD-bp) 9.0 ml EF(MOD-bp) 50.0 % SV(MOD-sp4) 7.1 ml SI(MOD-sp4) 5.8 ml/m\S\2 SV(MOD-sp2) 9.5 ml SI(MOD-sp2) 7.7 ml/m\S\2 SV(MOD-bp) 9.0 ml SI(MOD-bp) 7.3 ml/m\S\2 SV(sp4-el) 7.6 ml SI(sp4-el) 6.1 ml/m\S\2 SV(sp2-el) 10.3 ml SI(sp2-el) 8.3 ml/m\S\2 Doppler Measurements and Calculations MV E max rosendo 59.7 cm/sec MV A max rosendo 99.4 cm/sec MV E/A 0.60 MV dec time 0.35 sec Ao V2 max 132.8 cm/sec Ao max PG 7.1 mmHg Ao max PG (full) 4.9 mmHg LV V1 max PG 2.1 mmHg LV V1 max 73.2 cm/sec TR max rosendo 231.2 cm/sec
--- NOTE | 2016-11-10 16:11 | Progress Note ---
Subjective Subjective Date of Service: Nov 10, 2016. Pt evaluation today including: conversation w/ patient, physical exam, chart review, review of studies, conversation w/ learning and development consultant (Balwinderpert), review of inpatient medication list Notes: ROS is limited due to patient current condition Problem List Medical Problems: (1) Acute GI bleeding Status: Acute (2) Lactic acidosis Status: Acute (3) Leukocytosis Status: Acute Review of Systems ENT: No hearing loss Cardiac: No chest pain Female : No dysuria Endo: No fatigue Physical Exam Vital Signs Vital Signs Past 24 Hours: Date Time Temp Pulse Resp B/P Pulse Ox O2 Delivery O2 Flow Rate FiO2 11/10/16 14:00 105 11/10/16 14:00 102 22 107/62 Room Air 11/10/16 13:00 36.6 151 24 98/78 95 11/10/16 12:58 151 24 98/78 11/10/16 12:43 150 95/64 11/10/16 12:29 114 21 93/53 11/10/16 12:14 150 16 92/77 11/10/16 12:00 109 19 99/54 11/10/16 12:00 Room Air 11/10/16 11:43 101 22 101/64 11/10/16 11:29 106 17 110/71 11/10/16 11:13 98 17 118/74 95 11/10/16 11:00 104 16 104/64 90 Room Air 11/10/16 11:00 91 17 96 11/10/16 10:58 91 14 109/53 91 11/10/16 10:43 100 18 93/60 11/10/16 10:28 89 20 99/57 92 11/10/16 10:14 92 101/52 100 11/10/16 10:00 94 14 104/57 100 Nasal Cannula 2.0 11/10/16 10:00 89 29 100 11/10/16 09:58 89 22 104/57 100 11/10/16 09:43 94 12 104/61 100 11/10/16 09:29 94 15 95/55 11/10/16 09:13 96 12 102/55 92 11/10/16 09:00 144 17 91 11/10/16 08:58 93 16 98/60 92 11/10/16 08:43 95 17 95/52 93 11/10/16 08:28 88 92/59 91 11/10/16 08:13 89 86/56 93 11/10/16 08:00 92 Nasal Cannula 2.0 11/10/16 08:00 90 13 90 11/10/16 08:00 36.6 94 14 100/62 92 Nasal Cannula 2.0 11/10/16 07:58 93 17 100/62 92 11/10/16 07:43 89 12 92/57 94 11/10/16 07:29 88 26 89/62 93 11/10/16 07:13 90 16 96/56 94 11/10/16 07:00 86 21 94 11/10/16 06:29 79 14 89/54 94 11/10/16 06:13 89 27 97/52 98 11/10/16 06:10 89 25 87/53 97 4.0 11/10/16 05:58 88 23 87/53 93 11/10/16 05:47 36.5 95 24 95/60 11/10/16 05:46 36.4 93 25 82/51 95 4.0 11/10/16 05:43 89 26 82/51 94 11/10/16 05:33 90 17 90/56 11/10/16 05:26 36.5 89 24 95/60 97 11/10/16 05:10 97 Nasal Cannula 4.0 11/10/16 04:45 90/68 11/10/16 04:31 145 104/71 11/10/16 04:15 152 94/82 11/10/16 04:03 153 102/73 96 Nasal Cannula 4.0 11/10/16 03:41 Nasal Cannula 4.0 11/10/16 03:38 153 135/91 11/10/16 03:36 170 11/10/16 03:35 154 11/10/16 03:29 104 11/10/16 03:25 159 30 11/10/16 03:20 151 31 11/10/16 03:17 36.1 152 31 98/63 90 Nasal Cannula 11/10/16 03:17 159 11/10/16 03:15 105 28 11/10/16 03:10 118 32 11/10/16 03:10 123 11/10/16 03:00 98/63 Physical Exam: General Appearance: WD/WN, no apparent distress Eyes: bilateral eyes normal inspection ENT: hearing grossly normal Neck: supple, no JVD Respiratory/Chest: chest non-tender Abdomen: normal bowel sounds Extremities: normal range of motion Skin: normal color Medications Medications: Current Inpatient Medications Medications (Trade) Dose Ordered Sig/Alfonzo Route Start Time Stop Time Status Last Admin Dose Admin Piperacillin Sod/ Tazobactam Sod/ Dextrose (Zosyn Iv/D5 100ml) 115 ml @ 28.75 mls/ hr Q8H IV 11/10/16 10:00 11/17/16 09:59 11/10/16 10:54 28.75 MLS/HR Lorazepam (Ativan Inj) 0.5 mg Q4H PRN IV 11/10/16 04:45 12/10/16 04:44 Albuterol/ Ipratropium (Duoneb) 3 ml Q6H PRN INH 11/10/16 04:45 12/10/16 04:44 Morphine Sulfate 4 mg 4 mg Q2H PRN IV 11/10/16 04:45 11/24/16 04:44 11/10/16 12:58 4 MG Sodium Chloride (Nss 500ml) 500 ml @ 500 mls/hr Q1H PRN IV 11/10/16 05:30 12/10/16 05:29 Piperacillin Sod/ Tazobactam Sod 1 ea 1 ea UD PRN N/A 11/10/16 06:15 12/10/16 06:14 Potassium Chloride/Sodium Chloride (11/07 Nss + 20meq KCl 1000ml) 1,000 ml @ 150 mls/hr Q6H40M IV 11/10/16 07:15 12/10/16 06:44 11/10/16 14:17 150 MLS/HR Laboratory Data Labs: Last 24 Hours Test 11/10/16 02:59 11/10/16 03:17 11/10/16 03:21 11/10/16 03:30 Bedside Lactic Acid Venous 5.94 mmol/L White Blood Count 30.70 K/uL Red Blood Count 4.06 M/uL Hemoglobin 13.5 g/dL Hematocrit 40.2 % Mean Corpuscular Volume 99.0 fL Mean Corpuscular Hemoglobin 33.3 pg Mean Corpuscular Hemoglobin Concent 33.6 g/dl Platelet Count 191 K/uL Mean Platelet Volume 11.5 fL Neutrophils (%) (Auto) 93.6 % Lymphocytes (%) (Auto) 3.5 % Monocytes (%) (Auto) 2.4 % Eosinophils (%) (Auto) 0.0 % Basophils (%) (Auto) 0.0 % Neutrophils # (Auto) 28.72 K/uL Lymphocytes # (Auto) 1.08 K/uL Monocytes # (Auto) 0.73 K/uL Eosinophils # (Auto) 0.00 K/uL Basophils # (Auto) 0.01 K/uL RDW Standard Deviation 51.5 fL RDW Coefficient of Variation 14.4 % Immature Granulocyte % (Auto) 0.5 % Immature Granulocyte # (Auto) 0.16 K/uL Prothrombin Time 13.4 SECONDS Prothromb Time International Ratio 1.2 Sodium Level 153 mmol/L Potassium Level 3.9 mmol/L Chloride Level 115 mmol/L Carbon Dioxide Level 25 mmol/L Anion Gap 13.0 mmol/L 23.0 mmol/L Blood Urea Nitrogen 48 mg/dl Creatinine 0.80 mg/dl Est Creatinine Clear Calc Drug Dose 27.7 ml/min Estimated GFR () 77.4 Estimated GFR (Non- 66.8 BUN/Creatinine Ratio 59.4 Random Glucose 124 mg/dl Calcium Level 10.8 mg/dl Magnesium Level 2.6 mg/dl Total Bilirubin 0.8 mg/dl Direct Bilirubin 0.4 mg/dl Aspartate Amino Transf (AST/SGOT) 15 U/L Alanine Aminotransferase (ALT/SGPT) 15 U/L Alkaline Phosphatase 117 U/L Total Creatine Kinase 48 U/L Creatine Kinase MB 1.4 ng/ml Creatine Kinase MB Ratio 2.9 Troponin I 0.041 ng/ml Total Protein 7.2 gm/dl Albumin 2.2 gm/dl Bedside Hemoglobin 12.6 g/dl Bedside Hematocrit 37 % Bedside Sodium 151 mEq/L Bedside Potassium 3.7 mEq/L Bedside Chloride 111 mEq/L Bedside Total CO2 22 mEq/l Bedside Blood Urea Nitrogen 46 mg/dl Bedside Creatinine 0.7 mg/dl Bedside Glucose (other) 127 mg/dl Bedside Ionized Calcium (Wili) 1.53 mmol/l Urine Color DK YELLOW Urine Appearance CLEAR Urine pH 5.0 Urine Specific [place] 1.022 Urine Protein NEG Urine Glucose (UA) NEG Urine Ketones NEG Urine Occult Blood NEG Urine Nitrite NEG Urine Bilirubin NEG Urine Urobilinogen NEG Urine Leukocyte Esterase NEG Urine WBC (Auto) 1-5 /hpf Urine RBC (Auto) 0-4 /hpf Urine Hyaline Casts (Auto) 10-30 /lpf Urine Epithelial Cells (Auto) >30 /lpf Urine Bacteria (Auto) NEG Urine Renal Epithelial Cells /lpf Test 11/10/16 09:45 11/10/16 15:04 Hemoglobin 13.3 g/dL 13.1 g/dL Hematocrit 40.5 % 40.1 % Lactic Acid Level 2.4 mmol/L Procalcitonin 0.74 ng/mL Assessment and Plan A 85 y/o F w/Hx bronchiectasis and oral CA receiving radiation therapy. Pt has very poor PO intake and functional status at baseline. She developed bloody diarrhea earlier 11/10 and suffered a brief unresponsive episode following a BM. EMS were called to her house however she refused transport to the hospital. She became progressively lethargic and and continued to have bouts of bloody diarrhea. Following fluid resuscitation in the ER she regained her orientation. She is borderline hypotensive and tachycardic at the time of admission. Initial labs are notable for leukocytosis , hypernatremia, uremia and an elevated lactic acid. EKG shows either sinus tach or flutter at a rate of 150 bpm. 1) upper GI bleed, cont Protonix GTT ordered. GI consulted. IVF. Hb will be checked Q4H. 2) Tachycardia - sinus vs flutter on admission - now in sinus, improved with IVF , she may be compensating and has become gradually hypotensive so that we will avoid rate control drugs at present. 3) Leukocytosis with history of bronchiectasis, cont IV Zosyn considering her condition and lactic acidosis although acute infection cannot be confirmed presently. Nebulizers and an 02 protocol provided 4) Hypernatremia - likely severe dehydration - IVF provided. 5) Severe protein malnutrition - noted, will start comfort feeding 6) Oral CA - Pain control with IV morphine PRN Pt may not be a candidate for any intervention owing to her constitutional status. appreciated palliative care consult. DNR Liyah Palliative care RN talked to family and the plan for now is to continue conservative and supportive measures for the next 24 hours, then reevaluate. If patient declines, she wishes to be comfort measures only. Their ultimate goal would be to get patient to [facility] for comfort care. Case discussed with marketing sales representative team, we are awaiting for family to arrive and may make her Comfort and then transfer to [facility]. Cont IV morphine and Lorazepam as needed for comfort
--- NOTE | 2016-11-10 17:20 | Critical Care Consultation ---
Critical Care Consultation Date of Consultation: Nov 10, 2016. Attending Physician: Raúl Cabello MD Reason for Consultation: Acute GI Bleed with lactic acidosis History of Present Illness Attending: Dr. Enriquez This is an 85 showed female with a history of oral cancer currently receiving radiation therapy that developed bloody diarrhea and had syncope following a bowel movement. EMS was contacted and she refused transportation the hospital. She became progressively lethargic with subsequent bouts of bloody diarrhea and was brought to the emergency room for evaluation where she had fluid resuscitation which resulted in increased level of alertness. She had hypotension and tachycardia at the time of admission and was transferred to the intensive care unit early this morning for further evaluation and treatment. EKG showed tachycardia at 150 bpm concerning for atrial flutter. With fluid hydration she converted spontaneously into a normal sinus rhythm and is currently tachycardic at about [address] Enriquez had extensive discussion with the throughout the day. Currently conservative treatment is being maintained. The patient is awake and alert but disoriented and unable to provide any review of systems or past medical history. This is obtained from the chart. The patient does complain of oral pain by gesture. She shakes her head no to shortness of breath. 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 Noncontributory Social History Smoking Status: Never Smoker Alcohol Use: none Drug Use: none Marital Status: Housing Status: lives with family Allergies Coded Allergies: Tetanus Toxoid (Verified Allergy, Severe, SWELLING, RED, INFLAMMED, 11/10/16 ) Codeine (Verified Allergy, Intermediate, VOMITING, 11/10/16) NSAIDs (Verified Allergy, Intermediate, FACIAL SWELLING, STOMACH PROBLEMS , 11/10/16) Home Medications Scheduled PRN Oxycodone/Acetaminophen 5MG/325MG (Percocet 5MG/325MG), 1 TABLET PO Q6H PRN for Pain Current Inpatient Medications Current Inpatient Medications Medications (Trade) Dose Ordered Sig/Alfonzo Route Start Time Stop Time Status Last Admin Dose Admin Piperacillin Sod/ Tazobactam Sod/ Dextrose (Zosyn Iv/D5 100ml) 115 ml @ 28.75 mls/ hr Q8H IV 11/10/16 10:00 11/17/16 09:59 11/10/16 10:54 28.75 MLS/HR Lorazepam (Ativan Inj) 0.5 mg Q4H PRN IV 11/10/16 04:45 12/10/16 04:44 Albuterol/ Ipratropium (Duoneb) 3 ml Q6H PRN INH 11/10/16 04:45 12/10/16 04:44 Morphine Sulfate 4 mg 4 mg Q2H PRN IV 11/10/16 04:45 11/24/16 04:44 11/10/16 12:58 4 MG Sodium Chloride (Nss 500ml) 500 ml @ 500 mls/hr Q1H PRN IV 11/10/16 05:30 12/10/16 05:29 Piperacillin Sod/ Tazobactam Sod 1 ea 1 ea UD PRN N/A 11/10/16 06:15 12/10/16 06:14 Potassium Chloride/Sodium Chloride (11/07 Nss + 20meq KCl 1000ml) 1,000 ml @ 150 mls/hr Q6H40M IV 11/10/16 07:15 12/10/16 06:44 11/10/16 14:17 150 MLS/HR Review of Systems Unable to obtain ROS due to patient condition Physical Exam Date Time Temp Pulse Resp B/P Pulse Ox O2 Delivery O2 Flow Rate FiO2 11/10/16 16:00 101 20 94/53 97 Room Air 11/10/16 14:00 105 11/10/16 14:00 102 22 107/62 Room Air 11/10/16 13:00 36.6 151 24 98/78 95 11/10/16 12:58 151 24 98/78 11/10/16 12:43 150 95/64 11/10/16 12:29 114 21 93/53 11/10/16 12:14 150 16 92/77 11/10/16 12:00 109 19 99/54 11/10/16 12:00 Room Air 11/10/16 11:43 101 22 101/64 11/10/16 11:29 106 17 110/71 11/10/16 11:13 98 17 118/74 95 11/10/16 11:00 104 16 104/64 90 Room Air 11/10/16 11:00 91 17 96 11/10/16 10:58 91 14 109/53 91 11/10/16 10:43 100 18 93/60 11/10/16 10:28 89 20 99/57 92 11/10/16 10:14 92 101/52 100 11/10/16 10:00 94 14 104/57 100 Nasal Cannula 2.0 11/10/16 10:00 89 29 100 11/10/16 09:58 89 22 104/57 100 11/10/16 09:43 94 12 104/61 100 11/10/16 09:29 94 15 95/55 11/10/16 09:13 96 12 102/55 92 11/10/16 09:00 144 17 91 11/10/16 08:58 93 16 98/60 92 11/10/16 08:43 95 17 95/52 93 11/10/16 08:28 88 92/59 91 11/10/16 08:13 89 86/56 93 11/10/16 08:00 92 Nasal Cannula 2.0 11/10/16 08:00 90 13 90 11/10/16 08:00 36.6 94 14 100/62 92 Nasal Cannula 2.0 11/10/16 07:58 93 17 100/62 92 11/10/16 07:43 89 12 92/57 94 11/10/16 07:29 88 26 89/62 93 11/10/16 07:13 90 16 96/56 94 11/10/16 07:00 86 21 94 11/10/16 06:29 79 14 89/54 94 11/10/16 06:13 89 27 97/52 98 11/10/16 06:10 89 25 87/53 97 4.0 11/10/16 05:58 88 23 87/53 93 11/10/16 05:47 36.5 95 24 95/60 11/10/16 05:46 36.4 93 25 82/51 95 4.0 11/10/16 05:43 89 26 82/51 94 11/10/16 05:33 90 17 90/56 11/10/16 05:26 36.5 89 24 95/60 97 11/10/16 05:10 97 Nasal Cannula 4.0 11/10/16 04:45 90/68 11/10/16 04:31 145 104/71 11/10/16 04:15 152 94/82 11/10/16 04:03 153 102/73 96 Nasal Cannula 4.0 11/10/16 03:41 Nasal Cannula 4.0 11/10/16 03:38 153 135/91 11/10/16 03:36 170 11/10/16 03:35 154 11/10/16 03:29 104 11/10/16 03:25 159 30 11/10/16 03:20 151 31 11/10/16 03:17 36.1 152 31 98/63 90 Nasal Cannula 11/10/16 03:17 159 11/10/16 03:15 105 28 11/10/16 03:10 118 32 11/10/16 03:10 123 11/10/16 03:00 98/63 GENERAL : Moderate acute distress EYES: No icterus, gaze conjugate. PERRL NOSE: No evidence of epistaxis. Nasal cannula in place MOUTH: No lesions or candidiasis. Mucosa dry NECK: Supple. No appreciation of bruits LUNGS: CTA B/L, no wheezes, rales or rhonchi. Markedly decreased bilateral breath sounds HEART: Regular. Tachycardic. Unable to appreciate murmur, gallop, rub ABDOMEN: Soft, NT, ND, BS Present. EXTREMITIES: No LE edema, pedal pulses intact. NEURO: Awake and alert but unable to provide ROS. Disoriented. Laboratory Results Last 24 Hours Test 11/10/16 02:59 11/10/16 03:17 11/10/16 03:21 11/10/16 03:30 Bedside Lactic Acid Venous 5.94 mmol/L White Blood Count 30.70 K/uL Red Blood Count 4.06 M/uL Hemoglobin 13.5 g/dL Hematocrit 40.2 % Mean Corpuscular Volume 99.0 fL Mean Corpuscular Hemoglobin 33.3 pg Mean Corpuscular Hemoglobin Concent 33.6 g/dl Platelet Count 191 K/uL Mean Platelet Volume 11.5 fL Neutrophils (%) (Auto) 93.6 % Lymphocytes (%) (Auto) 3.5 % Monocytes (%) (Auto) 2.4 % Eosinophils (%) (Auto) 0.0 % Basophils (%) (Auto) 0.0 % Neutrophils # (Auto) 28.72 K/uL Lymphocytes # (Auto) 1.08 K/uL Monocytes # (Auto) 0.73 K/uL Eosinophils # (Auto) 0.00 K/uL Basophils # (Auto) 0.01 K/uL RDW Standard Deviation 51.5 fL RDW Coefficient of Variation 14.4 % Immature Granulocyte % (Auto) 0.5 % Immature Granulocyte # (Auto) 0.16 K/uL Prothrombin Time 13.4 SECONDS Prothromb Time International Ratio 1.2 Sodium Level 153 mmol/L Potassium Level 3.9 mmol/L Chloride Level 115 mmol/L Carbon Dioxide Level 25 mmol/L Anion Gap 13.0 mmol/L 23.0 mmol/L Blood Urea Nitrogen 48 mg/dl Creatinine 0.80 mg/dl Est Creatinine Clear Calc Drug Dose 27.7 ml/min Estimated GFR () 77.4 Estimated GFR (Non- 66.8 BUN/Creatinine Ratio 59.4 Random Glucose 124 mg/dl Calcium Level 10.8 mg/dl Magnesium Level 2.6 mg/dl Total Bilirubin 0.8 mg/dl Direct Bilirubin 0.4 mg/dl Aspartate Amino Transf (AST/SGOT) 15 U/L Alanine Aminotransferase (ALT/SGPT) 15 U/L Alkaline Phosphatase 117 U/L Total Creatine Kinase 48 U/L Creatine Kinase MB 1.4 ng/ml Creatine Kinase MB Ratio 2.9 Troponin I 0.041 ng/ml Total Protein 7.2 gm/dl Albumin 2.2 gm/dl Bedside Hemoglobin 12.6 g/dl Bedside Hematocrit 37 % Bedside Sodium 151 mEq/L Bedside Potassium 3.7 mEq/L Bedside Chloride 111 mEq/L Bedside Total CO2 22 mEq/l Bedside Blood Urea Nitrogen 46 mg/dl Bedside Creatinine 0.7 mg/dl Bedside Glucose (other) 127 mg/dl Bedside Ionized Calcium (Wili) 1.53 mmol/l Urine Color DK YELLOW Urine Appearance CLEAR Urine pH 5.0 Urine Specific [place] 1.022 Urine Protein NEG Urine Glucose (UA) NEG Urine Ketones NEG Urine Occult Blood NEG Urine Nitrite NEG Urine Bilirubin NEG Urine Urobilinogen NEG Urine Leukocyte Esterase NEG Urine WBC (Auto) 1-5 /hpf Urine RBC (Auto) 0-4 /hpf Urine Hyaline Casts (Auto) 10-30 /lpf Urine Epithelial Cells (Auto) >30 /lpf Urine Bacteria (Auto) NEG Urine Renal Epithelial Cells /lpf Test 11/10/16 09:45 11/10/16 15:04 Hemoglobin 13.3 g/dL 13.1 g/dL Hematocrit 40.5 % 40.1 % Lactic Acid Level 2.4 mmol/L Procalcitonin 0.74 ng/mL Diagnostic Results CHEST ONE VIEW PORTABLE HISTORY: fever COMPARISON: PET CT 08/10/2016. FINDINGS: No pneumothorax. Partially loculated [id number] right pleural effusion is new from the prior study. The heart is normal in size. The lungs are hyperexpanded. Right greater than left patchy airspace opacities have also progressed. IMPRESSION: 1. Interval development of a small to moderate partially loculated right pleural effusion. 2. Right greater than left patchy and nodular airspace opacities has also progressed. This may represent an atypical infectious process and/or metastatic disease. Electronically signed by: Gibson Rodrigues M.D. 11/10/2016 7:20 AM Assessment & Plan GI BLEED Patient's hemoglobin is been checked serially and remains around 13 g/Mike. BUN elevated at 48 Pro calcitonin 0.74 At this point, patient is unstable and no intervention is planned other than conservative management. No indication for transfusion at this time Will continue to monitor serial labs GI has been consulted and will defer treatment until decision regarding palliative care and/or comfort measures is determined Disposition to be discussed with family ORAL CANCER Patient is received two cycles of radiation treatment with most recent treatment in late October. 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 This may represent metastasis Patient currently not a good candidate for thoracentesis Await disposition by family regarding aggressiveness of treatment Continue antibiotics for now with Zosyn Follow clinically HISTORY OF BRONCHIECTASIS Tibial treatment includes Mucinex and chest physiotherapy Patient currently presents with decreased breath sounds but no significant bronchospasm or rhonchi Continue to monitor clinically ID Patient initially started on Zosyn Leukocytosis with a WBC of 30.7 Afebrile Blood cultures pending MRSA screening negative UA negative Lactic acid elevated 5.94. Repeat lactate 2.4 after hydration RENAL BUN elevated at 48 Creatinine 0.8 Continue gentle hydration Follow serial labs ELECTROLYTES Hypernatremia - continue fluid hydration Potassium 3.9 Magnesium 2.6 Calcium 10.8 - consistent with malignancy; ionized calcium 1.53 GI PROPHYLAXIS PPI started Follow clinically for GI bleed NUTRITION Known malignancy Albumin 2.2 No benefit from checking inflammatory markers at this time as patient most likely will be palliative/comfort care post family discussion Strict aspiration precautions IV ACCESS Peripheral access in place No indication for central line access at this time based on patient condition DVT PROPHYLAXIS No chemical prophylaxis secondary to GI bleed Consider teds/SCDs CCT: 0 minutes. Level V inpatient consult Extended visit between family and Dr. Enriquez, multiple discussions with primary hospitalist team. Thank you for including us in the care. Please refer to Dr. Enriquez's addendum for further recommendations I have personally evaluated and examined this patient. I agree with assessment and plan of Beth Crespo PA-C. Had extensive discussion with and later son regarding patient's condition and extremely poor/grim prognosis. All are agreeable to DNR/DNI and do not want escalation of care/heroic measures to occur. It is my opinion that the patient is in a terminal end stage condition without chance of meaningful recovery, and if the family decides to convert to comfort measures only, I am supportive of this. Family confirms the patient did not want to seek treatment and has refused further interventions/aggressive measures in the past. I have engaged palliative care at this time, and anticipate another son living in [place] to arrive tomorrow. Patient is critically ill due to GI bleeding and profound protein calorie malnutrition. I have personally spent 60 minutes of critical care time in the direct management of this patient. This is a life/limb threatening event. This includes time spent evaluating patient, direct bedside care, chart review, placing orders, interpretation of diagnostic studies, discussion with consultants, patient, and family members, as well as other required patient management activities. This time is exclusive of all separately billable procedures, and teaching time and separate from and in addition to any other critical care service time.
[2016-11-10 21:47] LABS: HEMATOCRIT 38.4 % (37-47)
[2016-11-11] VITALS (11 sets, daily range): BP systolic 80–123; BP diastolic 42–80; PULSE 82–144; TEMP 36.3–36.7; O2SAT 92–99
[2016-11-11] MEDS: SODIUM CHLOR 0.45% + 20MEQ KCL 1,000 ML IV SCH (04:25)
[2016-11-11] MEDS: PIPERACILL/TAZOBAC IV 3.375 GM in DEXTROSE 5% 100ML 100 ML IV SCH (05:36)
[2016-11-11] MEDS: MoRPHine SULFATE 4 MG/ML 1 ML CARP\\VIAL IV PRN ×3 (06:02→18:08)
[2016-11-11 06:07] LABS: HEMATOCRIT 41.2 % (37-47); MEAN CELL VOLUME 99.3 fL (80-100); MEAN CORPUSCULAR HEMOGLOBIN 31.6 pg (25-34); MEAN CORPUSCULAR HGB CONC 31.8 g/dl (32-36); MEAN PLATELET VOLUME 11.6 fL (7.4-10.4); PLATELET COUNT 116 K/uL (130-400); RED BLOOD COUNT 4.15 M/uL (4.2-5.4); WHITE BLOOD COUNT 30.66 K/uL (4.8-10.8)
[2016-11-11 06:21] LABS: BUN/CREATININE RATIO 50.3 (10-20); CALCIUM 10.5 mg/dl (8.5-10.1); CREATININE 0.62 mg/dl (0.60-1.20); POTASSIUM 4.1 mmol/L (3.5-5.1)
[2016-11-11] MEDS ORDERED: NURSING VERBAL MED ORDER ONE ×4 (09:15→18:00)
--- NOTE | 2016-11-11 09:27 | Palliative Care Progress Note ---
Palliative Care Progress Note Date of Service Nov 11, 2016. Subjective Pt evaluation today including: conversation w/ patient, conversation w/ family , physical exam, chart review, conversation w/ windows consultant Pain: shakes head "no" PO Intake: none Voiding: piper catheter in place Increased oxygen requirements over night/this morning More lethargic, not much verbal response from patient VS stable at this time Had a discussion with the patient's son, Efren. Goal is for comfort, but would like to wait to make the official decision of "comfort measures only" until the patient's , and other son if possible, is/are able to be here. The son is aware of the patient's very poor prognosis at this point. He is aware that transfer out of the hospital may not be possible at this time as the patient is limited to hours to days left of life. Review of Systems unable to obtain. Did deny pain or discomfort. Objective Vital Signs Date Time Temp Pulse Resp B/P Pulse Ox O2 Delivery O2 Flow Rate FiO2 11/11/16 08:15 105/63 11/11/16 08:00 95 Nasal Cannula 2.0 11/11/16 08:00 36.3 82 14 80/42 95 Nasal Cannula 2.0 11/11/16 05:00 90 22 93/45 99 Nasal Cannula 2.0 11/11/16 04:00 95 Nasal Cannula 2.0 11/11/16 04:00 36.7 144 23 110/80 99 Nasal Cannula 2.0 11/11/16 03:00 97 23 115/59 99 Nasal Cannula 2.0 11/11/16 02:00 110 23 123/65 98 Nasal Cannula 2.0 11/11/16 01:00 104 19 113/64 98 Nasal Cannula 4.0 11/11/16 00:01 109 18 113/59 93 4.0 11/11/16 00:01 95 Nasal Cannula 4.0 11/10/16 23:03 104 19 93/60 95 Nasal Cannula 4.0 11/10/16 22:30 105 19 88/57 95 Nasal Cannula 4.0 11/10/16 22:00 106 19 91/63 95 Nasal Cannula 4.0 11/10/16 21:44 109 19 85/47 95 Nasal Cannula 4.0 11/10/16 21:00 117 22 98/57 95 Nasal Cannula 4.0 11/10/16 20:00 95 Nasal Cannula 4.0 11/10/16 20:00 109 22 97/58 95 Nasal Cannula 4.0 11/10/16 19:09 107 25 86/50 95 Nasal Cannula 4.0 11/10/16 19:00 36.5 105 24 66/46 88 Room Air 11/10/16 18:00 112 20 81/50 Room Air 11/10/16 16:00 101 20 94/53 97 Room Air 11/10/16 14:00 105 11/10/16 14:00 102 22 107/62 Room Air 11/10/16 13:00 36.6 151 24 98/78 95 11/10/16 12:58 151 24 98/78 11/10/16 12:43 150 95/64 11/10/16 12:29 114 21 93/53 11/10/16 12:14 150 16 92/77 11/10/16 12:00 109 19 99/54 11/10/16 12:00 Room Air 11/10/16 11:43 101 22 101/64 11/10/16 11:29 106 17 110/71 11/10/16 11:13 98 17 118/74 95 11/10/16 11:00 104 16 104/64 90 Room Air 11/10/16 11:00 91 17 96 11/10/16 10:58 91 14 109/53 91 11/10/16 10:43 100 18 93/60 11/10/16 10:28 89 20 99/57 92 11/10/16 10:14 92 101/52 100 11/10/16 10:00 94 14 104/57 100 Nasal Cannula 2.0 11/10/16 10:00 89 29 100 11/10/16 09:58 89 22 104/57 100 11/10/16 09:43 94 12 104/61 100 11/10/16 09:29 94 15 95/55 11/10/16 09:13 96 12 102/55 92 Physical Exam General Appearance: no apparent distress, + cachetic, + thin, + pertinent finding (chronically ill appearing) ENT: + pertinent finding (mouth is dry with scabs on lips inside mouth) Neck: no JVD, trachea midline Respiratory/Chest: no accessory muscle use, + decreased breath sounds, + rhonchi (coarse anteriorly), + pertinent finding (nasal cannula) Cardiovascular: regular rate, rhythm (distant), no edema (of lower extremities) Abdomen: normal bowel sounds, soft Extremities: + pertinent finding (right arm with +2-3 edema and dusky colored; generalized weakness) Neurologic/Psychiatric: + pertinent finding (awakes to verbal stimuli, not much verbal response) Skin: + pallor Laboratory Results Last 24 Hours Test 11/10/16 09:45 11/10/16 15:04 11/10/16 21:22 11/11/16 05:27 Hemoglobin 13.3 g/dL 13.1 g/dL 12.6 g/dL 13.1 g/dL Hematocrit 40.5 % 40.1 % 38.4 % 41.2 % Lactic Acid Level 2.4 mmol/L Procalcitonin 0.74 ng/mL White Blood Count 30.66 K/uL Red Blood Count 4.15 M/uL Mean Corpuscular Volume 99.3 fL Mean Corpuscular Hemoglobin 31.6 pg Mean Corpuscular Hemoglobin Concent 31.8 g/dl RDW Standard Deviation 62.8 fL RDW Coefficient of Variation 17.2 % Platelet Count 116 K/uL Mean Platelet Volume 11.6 fL Sodium Level 153 mmol/L Potassium Level 4.1 mmol/L Chloride Level 120 mmol/L Carbon Dioxide Level 27 mmol/L Anion Gap 6.0 mmol/L Blood Urea Nitrogen 31 mg/dl Creatinine 0.62 mg/dl Est Creatinine Clear Calc Drug Dose 37.1 ml/min Estimated GFR () 94.6 Estimated GFR (Non- 81.6 BUN/Creatinine Ratio 50.3 Random Glucose 67 mg/dl Calcium Level 10.5 mg/dl Test 11/11/16 06:35 Assessment and Plan Problem list: GI Bleed Oral cancer s/p radiation treatments completed on 11/02/16 Cachexia Malnutrition, no PO intake Pleural effusion Bronchiectasis ?Infection in the presence of leukocytosis and elevated lactic acid. Blood cultures pending and is on Zosyn Goals of care Palliative care plan: Transfer to [facility]. Waiting to make patient comfort measures only until and two sons are able to speak with each other and make a final decision. Decrease IVF to 50ml/hr for now due to increased coarseness of lungs and increased oxygen requirements. No apparent distress at this time. Has morphine ordered PRN. Updated Dr. Willard. Family will call me when ready to talk and make decision on [employer]. Palliative Performance Scale: 10 % Continued [facility] stay due to: multiple IV medications needed, home environment unsafe for pt Discharge planning: uncertain
[2016-11-11] MEDS ORDERED: OXYCODONE HCL IR 5 MG TAB (IMMEDIATE RELEASE) PO STA (13:22)
--- NOTE | 2016-11-11 15:01 | Progress Note ---
Subjective Date of Service: Nov 11, 2016. Subjective Pt evaluation today including: conversation w/ patient, conversation w/ family , chart review, lab review Pt denies pain, n/v, SOB. is present and feels she is comfortable other than a cough/congestion at times. Problem List Medical Problems: (1) Acute GI bleeding Status: Acute (2) Lactic acidosis Status: Acute (3) Leukocytosis Status: Acute Objective Vital Signs Date Time Temp Pulse Resp B/P Pulse Ox O2 Delivery O2 Flow Rate FiO2 11/11/16 14:27 36.5 96 23 93 4.0 11/11/16 12:00 Nasal Cannula 4.0 11/11/16 12:00 36.5 96 23 109/67 93 Nasal Cannula 4.0 11/11/16 10:00 96 13 102/52 92 Nasal Cannula 4.0 11/11/16 08:15 105/63 11/11/16 08:00 95 Nasal Cannula 2.0 11/11/16 08:00 36.3 82 14 80/42 95 Nasal Cannula 4.0 11/11/16 05:00 90 22 93/45 99 Nasal Cannula 2.0 11/11/16 04:00 95 Nasal Cannula 2.0 11/11/16 04:00 36.7 144 23 110/80 99 Nasal Cannula 2.0 11/11/16 03:00 97 23 115/59 99 Nasal Cannula 2.0 11/11/16 02:00 110 23 123/65 98 Nasal Cannula 2.0 11/11/16 01:00 104 19 113/64 98 Nasal Cannula 4.0 11/11/16 00:01 109 18 113/59 93 4.0 11/11/16 00:01 95 Nasal Cannula 4.0 11/10/16 23:03 104 19 93/60 95 Nasal Cannula 4.0 11/10/16 22:30 105 19 88/57 95 Nasal Cannula 4.0 11/10/16 22:00 106 19 91/63 95 Nasal Cannula 4.0 11/10/16 21:44 109 19 85/47 95 Nasal Cannula 4.0 11/10/16 21:00 117 22 98/57 95 Nasal Cannula 4.0 11/10/16 20:00 95 Nasal Cannula 4.0 11/10/16 20:00 109 22 97/58 95 Nasal Cannula 4.0 11/10/16 19:09 107 25 86/50 95 Nasal Cannula 4.0 11/10/16 19:00 36.5 105 24 66/46 88 Room Air 11/10/16 18:00 112 20 81/50 Room Air 11/10/16 16:00 101 20 94/53 97 Room Air Physical Exam General Appearance: no apparent distress, + cachetic Respiratory/Chest: normal breath sounds, no respiratory distress Cardiovascular: regular rate, rhythm, no edema Abdomen: non tender, soft Extremities: non-tender, no pedal edema Neurologic/Psychiatric: alert Skin: normal color, warm/dry Laboratory Results Last 24 Hours Test 11/10/16 15:04 11/10/16 21:22 11/11/16 05:27 Hemoglobin 13.1 g/dL 12.6 g/dL 13.1 g/dL Hematocrit 40.1 % 38.4 % 41.2 % White Blood Count 30.66 K/uL Red Blood Count 4.15 M/uL Mean Corpuscular Volume 99.3 fL Mean Corpuscular Hemoglobin 31.6 pg Mean Corpuscular Hemoglobin Concent 31.8 g/dl RDW Standard Deviation 62.8 fL RDW Coefficient of Variation 17.2 % Platelet Count 116 K/uL Mean Platelet Volume 11.6 fL Sodium Level 153 mmol/L Potassium Level 4.1 mmol/L Chloride Level 120 mmol/L Carbon Dioxide Level 27 mmol/L Anion Gap 6.0 mmol/L Blood Urea Nitrogen 31 mg/dl Creatinine 0.62 mg/dl Est Creatinine Clear Calc Drug Dose 37.1 ml/min Estimated GFR () 94.6 Estimated GFR (Non- 81.6 BUN/Creatinine Ratio 50.3 Random Glucose 67 mg/dl Calcium Level 10.5 mg/dl Assessment and Plan 85 y/o F w/Hx bronchiectasis and oral CA receiving radiation therapy. Pt has very poor PO intake and functional status at baseline. She developed bloody diarrhea earlier 11/10 and suffered a brief unresponsive episode following a BM. EMS were called to her house however she refused transport to the hospital. She became progressively lethargic and and continued to have bouts of bloody diarrhea. EMS was once again summoned by her resulting in transport to the hospital. Following fluid resuscitation in the ER she regained her orientation. She is borderline hypotensive and tachycardic at the time of admission. Initial labs are notable for leukocytosis, hypernatremia, uremia and an elevated lactic acid. EKG shows either sinus tach or flutter at a rate of 150. 1) GI bleed - pt requests no procedures Palliative care saw pt yesterday and it was requested for Protonix GTT x24hrs , however at that time pt and family would like to move to comfort care Hb stable 2) Tachycardia - sinus vs flutter - She may be compensating and has become gradually hypotensive so that we will avoid rate control drugs at present. 3) Leukocytosis with history of bronchiectasis - Zosyn started on admission CXR noted for possible PNA or loculated pleural effusion Would like to avoid any procedures or further abx at this point considering her condition and lactic acidosis although acute infection cannot be confirmed presently. Nebulizers and an 02 protocol provided 4) Hypernatremia - likely severe dehydration - IVF provided. 5) Severe protein malnutrition - declined TPN 6) Oral CA - Pain control with IV morphine PRN Pt does not want further interventions for this issue and has not for some time DNR/DNI Comfort care Planning for d/c to [facility] if pt stabilizes Continued [facility] stay due to: multiple IV medications needed, home environment unsafe for pt Discharge planning: uncertain
[2016-11-11] MEDS ORDERED: SCOPOLAMINE 1.5 MG TDSY TD SCH (18:00)
[2016-11-11] MEDS: MoRPHine SULF/NSS 250MG/250ML 250 ML IV PRN ×3 (18:12→18:48)
[2016-11-11] MEDS: ATROPINE SULFATE 1% OP SOLN 2 ML BTL PO PRN (18:31)
[2016-11-11] MEDS ORDERED: LORAZEPAM INJ 0.5 MG in SYRINGE 0.75 ML IV PRN (18:45)
[2016-11-11] MEDS: CHECK SCOPOLAMINE PATCH PLACEMENT SCH (20:50)
[2016-11-12] MEDS: SODIUM CHLOR 0.45% + 20MEQ KCL 1,000 ML IV SCH (06:40)
[2016-11-12] MEDS: CHECK SCOPOLAMINE PATCH PLACEMENT SCH (07:45)
[2016-11-12] MEDS: ATROPINE SULFATE 1% OP SOLN 2 ML BTL PO PRN (07:46)
--- NOTE | 2016-11-12 08:34 | Death Pronouncement Note ---
Pronouncement Note Date & Time of Nov 12, 2016. 0821 Pronouncement At time of pronouncement the patients pupils were fixed and dilated, there was no spontaneous respiratory effort, no palpable pulse, no audible heart tones, and no response to pain or voice. Pt's son and [id number] were present at bedside at time of pt's passing. All questions answered. certificate completed.
--- NOTE | 2016-11-12 08:39 | Death Summary ---
Summary of Admission Date Nov 10, 2016 at 04:41 Date & Time of Nov 12, 2016. 0821 Cause of Acute respiratory failure Secondary Diagnoses Malnutrition/failure to thrive related to oral cancer GIB Hospital Course 85 y/o F w/Hx bronchiectasis and oral CA receiving radiation therapy. Pt has very poor PO intake and functional status at baseline. She developed bloody diarrhea earlier 11/10 and suffered a brief unresponsive episode following a BM. EMS were called to her house however she refused transport to the hospital. She became progressively lethargic and and continued to have bouts of bloody diarrhea. EMS was once again summoned by her resulting in transport to the hospital. Following fluid resuscitation in the ER she regained her orientation. She is borderline hypotensive and tachycardic at the time of admission. Initial labs are notable for leukocytosis, hypernatremia, uremia and an elevated lactic acid. EKG shows either sinus tach or flutter at a rate of 150. GI bleed - pt requests no procedures Palliative care saw pt yesterday and it was requested for Protonix GTT x24hrs , which was completed Hb stable Leukocytosis with history of bronchiectasis - Zosyn started on admission, however this was d/c'd once it was decided that pt would move to comfort care CXR noted for possible PNA or loculated pleural effusion Nebulizers and 02 protocol provided Hypernatremia - likely severe dehydration - IVF provided. Severe protein malnutrition - declined TPN Oral CA - Pain control with IV morphine PRN Pt and family did not want further interventions for this issue, which has been the case for some time Son and [id number] were present and I did meet with them at the time of pt' s passing. Copy To Michael Farah M.D.
== END 2016-11-12 11:45 | disposition expired | DRG 377 ==
LOC: ENRESERVTM → ENRESERVDT → EDBD 02:50 → C.EDA 02:58 → C.MSICU 04:41 → C.MED 11-11 14:41 → C.MS2W 11-11 18:19
PROVIDERS: ADMIT Internal Medicine; ATTEND Family Medicine
DX: K92.2 Gastrointestinal hemorrhage, unspecified (principal); E43 Unspecified severe protein-calorie malnutrition; J96.00 Acute respiratory failure, unspecified whether with hypoxia or hypercapnia; R64 Cachexia; E87.2 Acidosis; E87.0 Hyperosmolality and hypernatremia; I47.1 Supraventricular tachycardia; I48.92 Unspecified atrial flutter; C05.9 Malignant neoplasm of palate, unspecified; Z51.5 Encounter for palliative care; D72.829 Elevated white blood cell count, unspecified; J47.9 Bronchiectasis, uncomplicated; I07.1 Rheumatic tricuspid insufficiency; Z66 Do not resuscitate; Z92.3 Personal history of irradiation; Z88.5 Allergy status to narcotic agent; Z88.6 Allergy status to analgesic agent; Z88.7 Allergy status to serum and vaccine